=== PATIENT | male | born 1960 | race Two or more races ===

== ENCOUNTER 2016-05-24 09:24 | Day surgery (SDC) | payer MEDICARE, MEDICAID ==
--- NOTE | 2016-05-17 13:54 | HISTORY AND PHYSICAL E ---
History and Physical NAME: CLEM GERARD : 1960 AGE: 56Y ADMITTED: 05/24/2016 ROOM: CHIEF COMPLAINT: Colon screening. History of polyps. HISTORY OF THE PRESENT ILLNESS: I did colonoscopy in the year 2012. Patient did have colonoscopy with Dr. Gatica in 2003. His primary is Dr. Jakub Carvalho. Colon in 2012 showed 2-mm polyp, transverse colon; 2-mm polyp, sigmoid colon. The patient was sent to us by RHODA Escobedo. He does have 3-mm polyp, descending colon; 3-mm polyp, transverse colon; 2-mm polyp, rectum; adenoma polyps, transverse and ascending colon. ALLERGIES: PENICILLIN. PHYSICAL EXAMINATION: VITAL SIGNS: Blood pressure 130/70. Pulse 80. Respirations 18. Temp is 98. HEAD, EYES, EARS, NOSE AND THROAT: Normal. NECK: Supple. LUNGS: Clear. ABDOMEN: Soft. NEUROLOGIC: Negative. CONCLUSIONS: 1. History of polyps. 2. Colon screening. PLAN: Colonoscopy. Admit 05/24. MEDICATIONS: Patient is known to have diabetes. He takes Janumet and simvastatin. DICTATING PHYSICIAN: YVETTE GOFF M.D. [id number] PHY#: [id number] ID: [id number] JOB#: [id number] ACCT: [id number] cc:JAKUB CARVALHO M.D., MAHMOUD M.D. >
[~2016-05-24 09:24] MED LIST: EPINEPHRINE INJ 1 MG/10 ML DISP.SYRIN ONE; FENTANYL CITRATE INJ/PF 100 MCG/2 ML AMPUL ONE; FLUMAZENIL INJ 0.5 MG/5 ML VIAL IV ONE; GLUCAGON,HUMAN RECOMB 1 MG INJ ONE; GLYCOPYRROLATE INJ 0.4 MG/2 ML VIAL ONE; LIDOCAINE 2% JELLY 30 ML TUBE ONE; NALOXONE HCL INJ/PF 0.4 MG/1 ML SDV ONE; ONDANSETRON HCL INJ/PF 4 MG/2 ML SDV ONE; PROMETHAZINE HCL INJ 25 MG/1 ML VIAL ONE
[2016-05-24] MEDS: MIDAZOLAM 2 MG/2 ML INJ ONE ×2 (09:58→10:02)
--- NOTE | 2016-05-24 11:04 | DISCHARGE SUMMARY E ---
Discharge Summary NAME: CLEM GERARD : 1960 AGE: 56Y ADMITTED: 05/24/2016 DISCHARGED: 05/24/2016 PROCEDURE: Colonoscopy. FINAL DIAGNOSES: 1. External hemorrhoids. 2. Redundant colon. HISTORY: This is a 56-year-old male with history of polyps. Today's colonoscopy shows redundant colon, no evidence of polyps. DISCHARGE PLAN: 1. Soft diet, low residue for 2 days. 2. Baseline CBC, CEA and chem profile. 3. Patient to see us in the office in the next few days. Consider follow-up colonoscopy in 3 years. DICTATING PHYSICIAN: YVETTE GOFF M.D. [id number] PHY#: [id number] ID: [id number] JOB#: [id number] ACCT: [id number] cc:YVETTE GOFF M.D., MARY PA-C >
[2016-05-24 11:10] VITALS: BP 125/85
[2016-05-24 11:16] LABS: ABSOLUTE EOSINOPHILS # (AUTO) 0.1 10^3/uL (0.0-0.6); ABSOLUTE LYMPHOCYTES (AUTO) 1.6 10^3/uL (0.5-4.7); ABSOLUTE MONOCYTES (AUTO) 0.5 10^3/uL (0.1-1.4); BASOPHILS % (AUTO) 0.7 % (0-2); EOSINOPHILS % (AUTO) 2.2 % (0-6); HEMATOCRIT 40.9 % (37.9-51.0); HEMOGLOBIN 13.8 g/dL (13.5-17.0); HGB HCT DIFFERENCE 0.5; LYMPHOCYTES % (AUTO) 24.6 % (13-45); MEAN CORPUSCULAR HGB CONC 33.7 g/dL (32.0-36.0); MEAN CORPUSCULAR VOLUME 89 fl (80-97); MONOCYTES % (AUTO) 8.5 % (3-13); RED CELL DISTRIBUTION WIDTH 13.3 % (11.5-14.0); WHITE BLOOD COUNT 6.3 10^3/uL (4.0-10.5)
[2016-05-24 11:34] LABS: ANION GAP 13 (5-19); BLOOD UREA NITROGEN 14 mg/dL (7-20); CALCIUM 9.5 mg/dL (8.4-10.2); CARBON DIOXIDE 27 mmol/L (22-30); CHLORIDE 98 mmol/L (98-107); GLUCOSE 280 mg/dL (75-110); IRON 69.3 ug/dL (49-181); POTASSIUM 4.1 mmol/L (3.6-5.0); SODIUM 137.7 mmol/L (137-145)
[2016-05-24 12:05] LABS: CARCINOEMBRYONIC ANTIGEN 4.8 ng/mL (<3.0)
--- NOTE | 2016-05-24 12:30 | OPERATIVE REPORT E ---
Operative Report NAME: CLEM GERARD : 1960 AGE: 56Y DATE OF SURGERY: 05/24/2016 ROOM: PREOPERATIVE DIAGNOSIS: History of polyps. POSTOPERATIVE DIAGNOSIS: 1. External hemorrhoids. 2. Redundant colon. 3. No polyps. 4. The patient has foreign bodies, most likely fruits/grapes, in his sigmoid and descending colon which were lavaged and flushing it moved around. I did not see any polyps. PROCEDURE: Colonoscopy SURGEON: YVETTE GOFF M.D. TISSUE REMOVED OR ALTERED: None. DESCRIPTION OF PROCEDURE: Rectal exam external hemorrhoids. Rectosigmoid normal. Descending colon redundant, normal. Moderate amount of grapes retained in the left colon. Transverse colon normal. Ascending colon normal. Cecum normal. The patient has very redundant colon. Scope withdrawn cecum, ascending, transverse, descending, sigmoid all the way to the rectum. CONCLUSIONS: 1. Redundant colon. 2. External hemorrhoids. The patient tolerated the procedure well. He was discharged to his room in stable condition. DICTATING PHYSICIAN: YVETTE GOFF M.D. [id number] PHY#: [id number] ID: [id number] JOB#: [id number] ACCT: [id number] cc:YVETTE GOFF M.D., MARY PA-C >
== END 2016-05-24 11:18 | disposition home or self-care (01) ==
LOC: END 09:24
PROVIDERS: ATTEND Specialist
PROC: 0DJD8ZZ Inspection of Lower Intestinal Tract, Via Natural or Artificial Opening Endoscopic (ICD-10-PCS; principal; 2016-05-24 10:00)
DX: K63.5 Polyp of colon (principal); Q43.8 Other specified congenital malformations of intestine; K64.4 Residual hemorrhoidal skin tags; Z86.010 Personal history of colon polyps; R97.0 Elevated carcinoembryonic antigen [CEA]; Z88.0 Allergy status to penicillin
CPT/HCPCS: 45378; 36415; 82962; 82607; 82378; 83540; 85025; 80048; J2250; J3010; J1610; J0171; J2310; J2405; J2550; J3490

== ENCOUNTER → 2016-07-26 | Outpatient (CLI) | payer MEDICARE, MEDICAID ==
[2016-07-26 16:04] LABS: APPEARANCE,URINE CLEAR; BILIRUBIN,URINE NEGATIVE (NEGATIVE); GLUCOSE, URINE >=500 mg/dL (NEGATIVE); KETONES,URINE TRACE mg/dL (NEGATIVE); LEUKOCYTE ESTERASE,URINE NEGATIVE (NEGATIVE); NITRITE,URINE NEGATIVE (NEGATIVE); PROTEIN,URINE NEGATIVE (NEGATIVE); URINE SPECIFIC GRAVITY 1.024; UROBILINOGEN,URINE NEGATIVE mg/dL (<2.0)
[2016-07-26 16:51] LABS: ABSOLUTE BASOPHILS # (AUTO) 0.1 10^3/uL (0.0-0.2); ABSOLUTE EOSINOPHILS # (AUTO) 0.1 10^3/uL (0.0-0.6); ABSOLUTE MONOCYTES (AUTO) 0.8 10^3/uL (0.1-1.4); ABSOLUTE NEUT (AUTO) 5.3 10^3/uL (1.7-8.2); EOSINOPHILS % (AUTO) 1.6 % (0-6); HEMOGLOBIN 14.3 g/dL (13.5-17.0); HGB HCT DIFFERENCE -0.1; LYMPHOCYTES % (AUTO) 23.9 % (13-45); MEAN CORPUSCULAR HEMOGLOBIN 29.5 pg (27.0-33.4); MEAN CORPUSCULAR HGB CONC 33.2 g/dL (32.0-36.0); MEAN CORPUSCULAR VOLUME 89 fl (80-97); MONOCYTES % (AUTO) 9.4 % (3-13); RED BLOOD COUNT 4.84 10^6/uL (4.35-5.55); RED CELL DISTRIBUTION WIDTH 13.7 % (11.5-14.0); SEGMENTED NEUTROPHILS % (AUTO) 64.1 % (42-78); WHITE BLOOD COUNT 8.3 10^3/uL (4.0-10.5)
== END ==
LOC: OD 15:35
PROVIDERS: ATTEND Specialist
DX: R10.9 Unspecified abdominal pain (principal)
CPT/HCPCS: 36415; 74022; 81001; 85025

== ENCOUNTER 2016-08-05 08:31 | Emergency (ER) | payer MEDICARE, MEDICAID ==
[2016-08-05] MEDS ORDERED: KETOROLAC TROMETHAMINE INJ/PF 30 MG/1 ML SDV IV ONE (09:26)
[2016-08-05] MEDS ORDERED: NORMAL SALINE 1000 ML 1,000 ML IV ONE (09:26)
[2016-08-05] MEDS ORDERED: ONDANSETRON HCL INJ/PF 4 MG/2 ML SDV IV ONE (09:26)
[2016-08-05 09:32] LABS: APPEARANCE,URINE CLEAR; BILIRUBIN,URINE NEGATIVE (NEGATIVE); GLUCOSE, URINE 50 mg/dL (NEGATIVE); KETONES,URINE TRACE mg/dL (NEGATIVE); LEUKOCYTE ESTERASE,URINE NEGATIVE (NEGATIVE); NITRITE,URINE NEGATIVE (NEGATIVE); PROTEIN,URINE NEGATIVE (NEGATIVE); URINE SPECIFIC GRAVITY 1.019; UROBILINOGEN,URINE NEGATIVE mg/dL (<2.0)
[2016-08-05 09:49] LABS: ABSOLUTE BASOPHILS # (AUTO) 0.1 10^3/uL (0.0-0.2); ABSOLUTE EOSINOPHILS # (AUTO) 0.3 10^3/uL (0.0-0.6); ABSOLUTE LYMPHOCYTES (AUTO) 1.4 10^3/uL (0.5-4.7); ABSOLUTE MONOCYTES (AUTO) 0.6 10^3/uL (0.1-1.4); ABSOLUTE NEUT (AUTO) 3.8 10^3/uL (1.7-8.2); EOSINOPHILS % (AUTO) 5.1 % (0-6); HEMATOCRIT 40.8 % (37.9-51.0); HEMOGLOBIN 13.6 g/dL (13.5-17.0); LYMPHOCYTES % (AUTO) 23.3 % (13-45); MEAN CORPUSCULAR HEMOGLOBIN 30.2 pg (27.0-33.4); MEAN CORPUSCULAR HGB CONC 33.3 g/dL (32.0-36.0); MEAN CORPUSCULAR VOLUME 91 fl (80-97); MONOCYTES % (AUTO) 9.4 % (3-13); RED BLOOD COUNT 4.49 10^6/uL (4.35-5.55); RED CELL DISTRIBUTION WIDTH 13.8 % (11.5-14.0); SEGMENTED NEUTROPHILS % (AUTO) 61.2 % (42-78); WHITE BLOOD COUNT 6.1 10^3/uL (4.0-10.5)
--- NOTE | 2016-08-05 09:55 | ER Document Report ---
ED General - General Chief Complaint: Flank Pain Stated Complaint: FLANK PLAIN Time Seen by Provider: 08/05/16 08:56 TRAVEL OUTSIDE OF THE [place] IN LAST 30 DAYS: No - HPI Patient complains to provider of: flank pain Notes: Patient with generalized right flank pain ongoing for the last 10-14 days according to the patient. No nausea no vomiting fevers or chills no dysuria. Patient states he was seen by GI specialist thought that possibly may have had a kidney stone patient was prescribed Percocet patient states this is not relieving his pain now. Patient denies a history kidney stones patient does state he has a history of diabetes hypertension patient is unaware of his blood pressure medications - Related Data Allergies/Adverse Reactions: Penicillins Allergy (Intermediate, Verified 08/05/16 08:41) GENERALIZED PAIN Past Medical History - Social History Smoking Status: Current Every Day Smoker Chew tobacco use (# tins/day): No Frequency of alcohol use: None Drug Abuse: None Family History: Reviewed & Not Pertinent Patient has suicidal ideation: No Patient has homicidal ideation: No - Past Medical History Cardiac Medical History: Reports: Hx Heart Attack - Possible, Hx Hypertension Denies: Hx Atrial Fibrillation, Hx Congestive Heart Failure, Hx Coronary Artery Disease, Hx Hypercholesterolemia, Hx Peripheral Vascular Disease, Hx Pulmonary Embolism, Hx Heart Murmur Pulmonary Medical History: Denies: Hx Asthma, Hx Bronchitis, Hx COPD, Hx Pneumonia, Hx Respiratory Failure, Hx Sleep Apnea, Hx Tuberculosis Neurological Medical History: Reports: Hx Cerebrovascular Accident. Denies: Hx Seizures Endocrine Medical History: Reports: Hx Diabetes Mellitus Type 2. Denies: Hx Graves' Disease, Hx Hyperthyroidism, Hx Hypothyroidism Renal/ Medical History: Reports: Hx Kidney Stones. Denies: Hx Benign Prostatic Hyperplasia, Hx End Stage Renal Disease, Hx Peritoneal Dialysis Malignancy Medical History: Denies Hx Lung Cancer GI Medical History: Reports: Hx Gastroesophageal Reflux Disease. Denies: Hx Crohn's Disease, Hx Hiatal Hernia, Hx Irritable Bowel, Hx Liver Failure, Hx Ulcer Musculoskeltal Medical History: Reports Hx Arthritis - SHOULDERS, Denies Hx Fibromyalgia, Denies Hx Multiple Sclerosis, Denies Hx Muscular Dystrophy Psychiatric Medical History: Reports: Hx Bipolar Disorder, Hx Depression Denies: Hx Dementia, Hx Post Traumatic Stress Disorder, Hx Schizophrenia Traumatic Medical History: Denies: Hx Fractures Past Surgical History: Reports: Hx Cardiac Catheterization. Denies: Hx Appendectomy, Hx Bowel Surgery, Hx Cholecystectomy, Hx Colostomy, Hx Coronary Artery Bypass Graft, Hx Gastric Bypass Surgery, Hx Herniorrhaphy, Hx Pacemaker, Hx Tonsillectomy - Immunizations Hx Diphtheria, Pertussis, Tetanus Vaccination: Yes Review of Systems - Review of Systems Constitutional: No symptoms reported EENT: No symptoms reported Cardiovascular: No symptoms reported Respiratory: No symptoms reported Gastrointestinal: No symptoms reported Genitourinary: Flank pain Male Genitourinary: No symptoms reported Musculoskeletal: No symptoms reported Skin: No symptoms reported Hematologic/Lymphatic: No symptoms reported Neurological/Psychological: No symptoms reported -: Yes All other systems reviewed and negative Physical Exam - Vital signs Vitals: Temp Pulse Resp BP Pulse Ox 98.9 F 94 18 128/73 H 98 08/05/16 08:42 08/05/16 08:42 08/05/16 08:42 08/05/16 08:42 08/05/16 08:42 Interpretation: Normal - General General appearance: Appears well, Alert - HEENT Head: Normocephalic, Atraumatic Eyes: Normal Pupils: PERRL - Respiratory Respiratory status: No respiratory distress Chest status: Nontender Breath sounds: Normal Chest palpation: Normal - Cardiovascular Rhythm: Regular Heart sounds: Normal auscultation Murmur: No - Abdominal Inspection: Normal Distension: No distension Bowel sounds: Normal Tenderness: Nontender Organomegaly: No organomegaly - Back Back: Normal, Nontender. No: CVA tenderness - Extremities General upper extremity: Normal inspection, Nontender, Normal color, Normal ROM , Normal temperature General lower extremity: Normal inspection, Nontender, Normal color, Normal ROM , Normal temperature, Normal weight bearing. No: Cathy's sign - Neurological Neuro grossly intact: Yes Cognition: Normal Orientation: AAOx4 Sheryl Coma Scale Eye Opening: Spontaneous [place] Coma Scale Verbal: Oriented [place] Coma Scale Motor: Obeys Commands [place] Coma Scale Total: 15 Speech: Normal Motor strength normal: LUE, RUE, LLE, RLE Sensory: Normal - Psychological Associated symptoms: Normal affect, Normal mood - Skin Skin Temperature: Warm Skin Moisture: Dry Skin Color: Normal Course - Re-evaluation Re-evalutation: 08/05/16 10:08 Patient coming in for evaluation right flank pain. Patient will have a CT scan basic lab work performed. At this time vital signs look stable no critical etiology. 08/05/16 14:25 No clear etiology to explain the patient's pain. Patient will follow-up primary care physician and will be discharged home - Vital Signs Vital signs: Temp Pulse Resp BP Pulse Ox 97.6 F 78 16 131/85 H 98 08/05/16 11:20 08/05/16 11:20 08/05/16 11:20 08/05/16 11:20 08/05/16 11:20 - Laboratory Result Diagrams: 08/05/16 09:08 08/05/16 09:08 Laboratory results interpreted by me: 08/05/16 08/05/16 09:08 09:18 Glucose 192 H Urine Glucose (UA) 50 H Urine Ketones TRACE H Discharge - Discharge Clinical Impression: Right flank pain, Bilateral nephrolithiasis Condition: Good Disposition: HOME, SELF-CARE Instructions: Flank Pain ([facility]) Additional Instructions: At this time I have no clear sign of why you're having flank pain. Please follow-up with your primary care doctor. Return to the ER if symptoms worsen. He may take Tylenol and Motrin [id number] for your pain control. The pain medication prescribed is her very severe pain. Prescriptions: Oxycodone HCl 5 mg PO Q6 #14 capsule Referrals: ERNESTO HOUSER PA-C [Primary Care Provider] - Follow up as needed
[2016-08-05 10:07] LABS: ALANINE AMINOTRANSFERASE 41 U/L (21-72); ALBUMIN 4.2 g/dL (3.5-5.0); ALKALINE PHOSPHATASE 50 U/L (38-126); ANION GAP 10 (5-19); ASPARTATE AMINO TRANSFERASE 29 U/L (17-59); BILIRUBIN,DIRECT 0.3 mg/dL (0.0-0.4); BILIRUBIN,TOTAL 0.3 mg/dL (0.2-1.3); BLOOD UREA NITROGEN 17 mg/dL (7-20); CARBON DIOXIDE 25 mmol/L (22-30); CHLORIDE 104 mmol/L (98-107); CREATININE RESULT 0.89 mg/dL (0.52-1.25); GLUCOSE 192 mg/dL (75-110); LIPASE 124.7 U/L (23-300); POTASSIUM 4.6 mmol/L (3.6-5.0); SODIUM 139.3 mmol/L (137-145); TOTAL PROTEIN 6.9 g/dL (6.3-8.2)
[2016-08-05 11:27] VITALS: BP 131/85
== END 2016-08-05 11:27 | disposition home or self-care (01) ==
LOC: ER 08:31
DX: N20.0 Calculus of kidney (principal); R10.9 Unspecified abdominal pain; F17.200 Nicotine dependence, unspecified, uncomplicated
CPT/HCPCS: 99284; 96361; 96374; 96375; 36415; 83690; 85025; 80053; 81001; 76380; J1885; J2405; J7030

== ENCOUNTER 2016-10-14 20:11 | Emergency (ER) | payer MEDICARE, MEDICAID ==
[2016-10-14] MEDS ORDERED: ONDANSETRON 4 MG TAB.RAPDIS PO ONE (20:50)
--- NOTE | 2016-10-14 20:53 | ER Document Report ---
ED Medical Screen (RME) - General Chief Complaint: Abdominal Pain Stated Complaint: ABDOMINAL PAIN Time Seen by Provider: 10/14/16 20:48 Mode of Arrival: Ambulatory Information source: Patient TRAVEL OUTSIDE OF THE [place] IN LAST 30 DAYS: No - HPI Onset: This afternoon - 3 HRS PRIOR TO E.D. ARRIVAL Onset/Duration: Sudden Quality of pain: Cramping, Dull Severity: Moderate Associated Symptoms: Nausea. 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 Allergies/Adverse Reactions: Penicillins Allergy (Intermediate, Verified 10/14/16 20:21) GENERALIZED PAIN Past Medical History - General Information source: Patient - Social History Chew tobacco use (# tins/day): No Frequency of alcohol use: None Drug Abuse: None - Past Medical History Cardiac Medical History: Reports: Hx Heart Attack - Possible, Hx Hypertension Denies: Hx Atrial Fibrillation, Hx Congestive Heart Failure, Hx Coronary Artery Disease, Hx Hypercholesterolemia, Hx Peripheral Vascular Disease, Hx Pulmonary Embolism, Hx Heart Murmur Pulmonary Medical History: Denies: Hx Asthma, Hx Bronchitis, Hx COPD, Hx Pneumonia, Hx Respiratory Failure, Hx Sleep Apnea, Hx Tuberculosis Neurological Medical History: Reports: Hx Cerebrovascular Accident. Denies: Hx Seizures Endocrine Medical History: Reports: Hx Diabetes Mellitus Type 2. Denies: Hx Graves' Disease, Hx Hyperthyroidism, Hx Hypothyroidism Renal/ Medical History: Reports: Hx Kidney Stones. Denies: Hx Benign Prostatic Hyperplasia, Hx End Stage Renal Disease, Hx Peritoneal Dialysis Malignancy Medical History: Denies Hx Lung Cancer GI Medical History: Reports: Hx Gastroesophageal Reflux Disease. Denies: Hx Crohn's Disease, Hx Hiatal Hernia, Hx Irritable Bowel, Hx Liver Failure, Hx Ulcer Musculoskeltal Medical History: Reports Hx Arthritis - SHOULDERS, Denies Hx Fibromyalgia, Denies Hx Multiple Sclerosis, Denies Hx Muscular Dystrophy Psychiatric Medical History: Reports: Hx Bipolar Disorder, Hx Depression Denies: Hx Dementia, Hx Post Traumatic Stress Disorder, Hx Schizophrenia Traumatic Medical History: Denies: Hx Fractures Past Surgical History: Reports: Hx Cardiac Catheterization. Denies: Hx Appendectomy, Hx Bowel Surgery, Hx Cholecystectomy, Hx Colostomy, Hx Coronary Artery Bypass Graft, Hx Gastric Bypass Surgery, Hx Herniorrhaphy, Hx Pacemaker, Hx Tonsillectomy - Immunizations Hx Diphtheria, Pertussis, Tetanus Vaccination: Yes Review of Systems - Review of Systems Constitutional: No symptoms reported EENT: No symptoms reported Cardiovascular: See HPI Respiratory: No symptoms reported Gastrointestinal: See HPI Genitourinary: No symptoms reported Musculoskeletal: No symptoms reported Skin: No symptoms reported Neurological/Psychological: No symptoms reported Physical Exam - Vital signs Interpretation: Hypertensive. No: Tachycardic, Tachypneic, Febrile - General General appearance: Appears well, Alert In distress: None - HEENT Head: Normocephalic Eyes: Normal Conjunctiva: Normal Ears: Normal Nasal: Normal Mouth/Lips: Normal Mucous membranes: Normal - Respiratory Respiratory status: No respiratory distress - Cardiovascular Rhythm: Regular - Abdominal Inspection: Normal, Obese Tenderness: Tender - MILDLY, RUQ - Back Back: Normal - Extremities General upper extremity: Normal inspection General lower extremity: Normal inspection. No: Tender, Edema - Neurological Neuro grossly intact: Yes Cognition: Normal Orientation: AAOx4 - Psychological Associated symptoms: Normal affect, Normal mood - Skin Skin Temperature: Warm Skin Moisture: Dry Skin Color: Normal Skin Turgor: Elastic
[2016-10-14 22:05] LABS: ABSOLUTE BASOPHILS # (AUTO) 0.1 10^3/uL (0.0-0.2); ABSOLUTE EOSINOPHILS # (AUTO) 0.3 10^3/uL (0.0-0.6); ABSOLUTE LYMPHOCYTES (AUTO) 1.9 10^3/uL (0.5-4.7); ABSOLUTE MONOCYTES (AUTO) 0.8 10^3/uL (0.1-1.4); ABSOLUTE NEUT (AUTO) 6.3 10^3/uL (1.7-8.2); BASOPHILS % (AUTO) 0.7 % (0-2); EOSINOPHILS % (AUTO) 3.4 % (0-6); HEMATOCRIT 41.8 % (37.9-51.0); HGB HCT DIFFERENCE 0.2; LYMPHOCYTES % (AUTO) 20.1 % (13-45); MEAN CORPUSCULAR HEMOGLOBIN 30.5 pg (27.0-33.4); MEAN CORPUSCULAR HGB CONC 33.4 g/dL (32.0-36.0); MEAN CORPUSCULAR VOLUME 91 fl (80-97); MONOCYTES % (AUTO) 8.3 % (3-13); RED BLOOD COUNT 4.57 10^6/uL (4.35-5.55); RED CELL DISTRIBUTION WIDTH 13.5 % (11.5-14.0); SEGMENTED NEUTROPHILS % (AUTO) 67.5 % (42-78); WHITE BLOOD COUNT 9.3 10^3/uL (4.0-10.5)
[2016-10-14 22:25] LABS: APPEARANCE,URINE CLEAR; BILIRUBIN,URINE NEGATIVE (NEGATIVE); GLUCOSE, URINE NEGATIVE (NEGATIVE); KETONES,URINE NEGATIVE (NEGATIVE); LEUKOCYTE ESTERASE,URINE NEGATIVE (NEGATIVE); NITRITE,URINE NEGATIVE (NEGATIVE); PROTEIN,URINE NEGATIVE (NEGATIVE); URINE SPECIFIC GRAVITY 1.015; UROBILINOGEN,URINE NEGATIVE mg/dL (<2.0)
[2016-10-14 22:29] LABS: ALANINE AMINOTRANSFERASE 38 U/L (21-72); ALBUMIN 4.8 g/dL (3.5-5.0); ALKALINE PHOSPHATASE 57 U/L (38-126); ANION GAP 12 (5-19); ASPARTATE AMINO TRANSFERASE 25 U/L (17-59); BILIRUBIN,DIRECT 0.3 mg/dL (0.0-0.4); BILIRUBIN,TOTAL 0.4 mg/dL (0.2-1.3); BLOOD UREA NITROGEN 19 mg/dL (7-20); CALCIUM 10.5 mg/dL (8.4-10.2); CARBON DIOXIDE 27 mmol/L (22-30); CHLORIDE 102 mmol/L (98-107); CREATININE RESULT 0.84 mg/dL (0.52-1.25); GLUCOSE 140 mg/dL (75-110); LIPASE 212.3 U/L (23-300); POTASSIUM 4.5 mmol/L (3.6-5.0); SODIUM 141.4 mmol/L (137-145); TOTAL PROTEIN 7.9 g/dL (6.3-8.2)
--- NOTE | 2016-10-14 23:27 | RADIOLOGY REPORT (SQ) ---
EXAM DESCRIPTION: U/S ABDOMEN COMPLETE W/O DOP COMPLETED DATE/TIME: 10/14/2016 11:13 pm REASON FOR STUDY: R. UPPER QUADRANT PAIN COMPARISON: None. TECHNIQUE: Dynamic and static grayscale images acquired of the abdomen and recorded on PACS. Additio nal selected color Doppler and spectral images recorded. LIMITATIONS: None. FINDINGS: PANCREAS: Not adequately visualized LIVER: Diffusely increased echogenicity, consistent with hepatic steatosis. LIVER VASCULATURE: Normal directional flow of the main portal vein and hepatic veins. GALLBLADDER: No stones. Normal wall thickness. No pericholecystic fluid. ULTRASOUND-DETECTED PALOMO'S SIGN: Positive. INTRAHEPATIC DUCTS AND COMMON DUCT: CBD and intrahepatic ducts normal caliber. No filling defects. INFERIOR VENA CAVA: Normal flow. AORTA: The proximal aorta is normal in caliber; the mid and distal aorta are not adequately visualize d. RIGHT KIDNEY: Normal size. Normal echogenicity. No solid or suspicious masses. No hydronephros is. No calcifications. LEFT KIDNEY: Normal size. Normal echogenicity. No solid or suspicious masses. Incidental note i s made of a 5 cm renal cyst. No hydronephrosis. No calcifications. SPLEEN: Normal size. No solid masses. PERITONEAL AND PLEURAL SPACES: No ascites or effusions. OTHER: No other significant finding. IMPRESSION: Reported sonographic Palomo's sign in the absence of cholelithiasis, mural thickening, o r pericholecystic fluid. No sonographic findings to correlate to the patient's reported right upper quadrant pain. TECHNICAL DOCUMENTATION: JOB ID: [id number] [employer]- All Rights Reserved
[2016-10-15] MEDS ORDERED: NORMAL SALINE 1000 ML 1,000 ML IV ONE (00:04)
[2016-10-15] MEDS ORDERED: MORPHINE SULFATE 10 MG/ML INJ IV PRN (00:04)
--- NOTE | 2016-10-15 02:15 | RADIOLOGY REPORT (SQ) ---
EXAM DESCRIPTION: CT ABD/PELVIS WITH IV ONLY COMPLETED DATE/TIME: 10/15/2016 2:02 am REASON FOR STUDY: ruq pain, persistent, gaurding COMPARISON: None. TECHNIQUE: CT scan of the abdomen and pelvis performed using helical scanning technique with dynamic intravenous contrast injection. No oral contrast. Images reviewed with lung, soft tissue, and bone windows. Reconstructed coronal and sagittal MPR images reviewed. Delayed images for evaluation of the urinary system also acquired. All images stored on PACS. All CT scanners at this facility use dose modulation, iterative reconstruction, and/or weight based d osing when appropriate to reduce radiation dose to as low as reasonably achievable (ALARA). [facility]: Dose Right [facility]: CareDose [facility]: Dose Right [facility]: Teradose 4D [facility]: LocalGuiding CONTRAST TYPE AND DOSE: contrast/concentration: Isovue 370.00 mg/ml; Total Contrast Delivered: 100.0 ml; Total Saline Delivered: 72.0 ml RENAL FUNCTION: GFR > 60. RADIATION DOSE: Up-to-date CT equipment and radiation dose reduction techniques were employed. CTDIv ol: 13.4 - 18.5 mGy. DLP: 1764 mGy-cm.. LIMITATIONS: None. FINDINGS: LOWER CHEST: No significant findings. No nodules or infiltrates. LIVER: Normal size. No masses. No dilated ducts. SPLEEN: Normal size. No focal lesions. PANCREAS: No masses. No significant calcifications. No adjacent inflammation or peripancreatic fluid collections. Pancreatic duct not dilated. GALLBLADDER: No identified stones by CT criteria. No inflammatory changes to suggest cholecystitis. ADRENAL GLANDS: No significant masses or asymmetry. RIGHT KIDNEY AND URETER: No solid masses. No significant calcifications. No hydronephrosis or hyd roureter. LEFT KIDNEY AND URETER: Large cysts. No significant calcifications. No hydronephrosis or hydroure ter. AORTA AND VESSELS: No aneurysm. No dissection. Renal arteries, SMA, celiac without stenosis. RETROPERITONEUM: No retroperitoneal adenopathy, hemorrhage or masses. BOWEL AND PERITONEAL CAVITY: No masses or inflammatory changes. No free fluid or peritoneal masses. APPENDIX: Normal. PELVIS: No mass. No free fluid. Normal bladder. ABDOMINAL WALL: No masses. No hernias. BONES: No significant or acute findings. OTHER: No other significant finding. IMPRESSION: NO SIGNIFICANT OR ACUTE FINDING IN THE ABDOMEN OR PELVIS ON CT SCAN WITH IV CONTRAST. TECHNICAL DOCUMENTATION: JOB ID: [id number] Quality ID # [id number]: Final reports with documentation of one or more dose reduction techniques (e.g., Au tomated exposure control, adjustment of the mA and/or kV according to patient size, use of iterative reconstruction technique) 2010 [employer]- All Rights Reserved
[2016-10-15] MEDS ORDERED: MAG HYDROX/AL HYDROX/SIMETH SUSP 30 ML UDCUP PO ONE (02:31)
[2016-10-15] MEDS ORDERED: METOCLOPRAMIDE HCL ORAL SOLN 10 MG/10 ML UDCUP PO ONE (02:31)
[2016-10-15] MEDS ORDERED: LIDOCAINE 2% VISCOUS SOLN 20 ML UDCUP PO ONE (02:31)
--- NOTE | 2016-10-15 02:35 | ER Document Report ---
ED General - General Chief Complaint: Abdominal Pain Stated Complaint: ABDOMINAL PAIN Time Seen by Provider: 10/14/16 20:48 Mode of Arrival: Ambulatory Notes: Patient is a 56-year-old male with a history of tobacco abuse, hypertension, who presents with 6 hours of right upper quadrant abdominal pain. Does describe as a severe, constant, stabbing pain to the affected area. Nothing improves or worsens the pain. He denies any history of similar symptoms in the past. He has not seen a primary care doctor regarding today's concerns. There is associated nausea without vomiting. He has not had a fever. He denies any chest pain or shortness of breath. TRAVEL OUTSIDE OF THE [place] IN LAST 30 DAYS: No - Related Data Allergies/Adverse Reactions: Penicillins Allergy (Intermediate, Verified 10/14/16 20:21) GENERALIZED PAIN Past Medical History - General Information source: Patient - Social History Smoking Status: Current Every Day Smoker Chew tobacco use (# tins/day): No Frequency of alcohol use: None Drug Abuse: None Lives with: Spouse/Significant other Family History: Reviewed & Not Pertinent - Past Medical History Cardiac Medical History: Reports: Hx Heart Attack - Possible, Hx Hypertension Denies: Hx Atrial Fibrillation, Hx Congestive Heart Failure, Hx Coronary Artery Disease, Hx Hypercholesterolemia, Hx Peripheral Vascular Disease, Hx Pulmonary Embolism, Hx Heart Murmur Pulmonary Medical History: Denies: Hx Asthma, Hx Bronchitis, Hx COPD, Hx Pneumonia, Hx Respiratory Failure, Hx Sleep Apnea, Hx Tuberculosis Neurological Medical History: Reports: Hx Cerebrovascular Accident. Denies: Hx Seizures Endocrine Medical History: Reports: Hx Diabetes Mellitus Type 2. Denies: Hx Graves' Disease, Hx Hyperthyroidism, Hx Hypothyroidism Renal/ Medical History: Reports: Hx Kidney Stones. Denies: Hx Benign Prostatic Hyperplasia, Hx End Stage Renal Disease, Hx Peritoneal Dialysis Malignancy Medical History: Denies Hx Lung Cancer GI Medical History: Reports: Hx Gastroesophageal Reflux Disease. Denies: Hx Crohn's Disease, Hx Hiatal Hernia, Hx Irritable Bowel, Hx Liver Failure, Hx Ulcer Musculoskeltal Medical History: Reports Hx Arthritis - SHOULDERS, Denies Hx Fibromyalgia, Denies Hx Multiple Sclerosis, Denies Hx Muscular Dystrophy Psychiatric Medical History: Reports: Hx Bipolar Disorder, Hx Depression Denies: Hx Dementia, Hx Post Traumatic Stress Disorder, Hx Schizophrenia Traumatic Medical History: Denies: Hx Fractures Past Surgical History: Reports: Hx Cardiac Catheterization. Denies: Hx Appendectomy, Hx Bowel Surgery, Hx Cholecystectomy, Hx Colostomy, Hx Coronary Artery Bypass Graft, Hx Gastric Bypass Surgery, Hx Herniorrhaphy, Hx Pacemaker, Hx Tonsillectomy - Immunizations Hx Diphtheria, Pertussis, Tetanus Vaccination: Yes Review of Systems - Review of Systems Notes: Constitutional: Negative for fever. HENT: Negative for sore throat. Eyes: Negative for visual changes. Cardiovascular: Negative for chest pain. Respiratory: Negative for shortness of breath. Gastrointestinal: Positive for abdominal pain and nausea Genitourinary: Negative for dysuria. Musculoskeletal: Negative for back pain. Skin: Negative for rash. Neurological: Negative for headaches, weakness or numbness. 10 point ROS negative except as marked above and in HPI. Physical Exam - Vital signs Vitals: Temp Pulse Resp BP Pulse Ox 97.9 F 80 20 142/79 H 98 10/15/16 03:25 10/15/16 03:25 10/15/16 03:25 10/15/16 03:25 10/15/16 03:25 Interpretation: Hypertensive Notes: PHYSICAL EXAMINATION: GENERAL: Appears mildly uncomfortable but in no acute distress.. HEAD: Atraumatic, normocephalic. EYES: Pupils equal round and reactive to light, extraocular movements intact, sclera anicteric, conjunctiva are normal. ENT: nares patent, oropharynx clear without exudates. Moist mucous membranes. NECK: Normal range of motion, supple without lymphadenopathy LUNGS: Breath sounds clear to auscultation bilaterally and equal. No wheezes rales or rhonchi. HEART: Regular rate and rhythm without murmurs ABDOMEN: Soft, there is focal tenderness to the right upper quadrant and epigastrium without rebound or guarding. Abdominal exam otherwise without any focal tenderness rebound or guarding. EXTREMITIES: Normal range of motion, no pitting or edema. No cyanosis. NEUROLOGICAL: No focal neurological deficits. Moves all extremities spontaneously and on command. PSYCH: Normal mood, normal affect. SKIN: Warm, Dry, normal turgor, no rashes or lesions noted. Course - Re-evaluation Re-evalutation: 10/15/16 02:31 Patient presents with right upper quadrant abdominal pain for the past 6 hours, focal tenderness to the right upper quadrant and epigastric pain. Differential diagnosis did lead toward likely biliary pathology but a right upper quadrant ultrasound was completely normal without any evidence of acute cholecystitis. Repeat abdominal exams remained with tenderness to the right upper quadrant and epigastrium despite normal vitals, reassuring labs. At this point given patient 's degree of pain did obtain a CT of the abdomen pelvis with IV contrast to evaluate for possible idiopathic liver injury, bowel perforation, intra- abdominal abscess. CT was noted to be completely normal. Patient's pain was able to be controlled here in the emergency department. At this time at this point the patient that the exact etiology of his pain is uncertain at this time he needs to return to the emergency department immediately should have any new or worsening symptoms including worsening of his abdominal pain. At this time will discharge with return precautions and follow-up recommendations. Verbal discharge instructions given a the bedside and opportunity for questions given. Medication warnings reviewed. Patient is in agreement with this plan and has verbalized understanding of return precautions and the need for primary care follow-up in the next 24-72 hours. - Vital Signs Vital signs: Temp Pulse Resp BP Pulse Ox 97.9 F 80 20 142/79 H 98 10/15/16 03:25 10/15/16 03:25 10/15/16 03:25 10/15/16 03:25 10/15/16 03:25 - Laboratory Result Diagrams: 10/14/16 21:40 10/14/16 21:40 Laboratory results interpreted by me: 10/14/16 21:40 Glucose 140 H Calcium 10.5 H - Diagnostic Test Radiology reviewed: Reports reviewed - EKG Interpretation by Me Additional EKG results interpreted by me: 10/15/16 04:03 Sinus rhythm. Rate 66. No ST elevations or depressions. QTC is 424. Discharge - Discharge Clinical Impression: Abdominal pain Qualifiers: Abdominal location: right upper quadrant Qualified Code(s): R10.11 - Right upper quadrant pain Condition: Good Disposition: HOME, SELF-CARE Additional Instructions: You have been seen in the Emergency Department (ED) for abdominal pain. Your evaluation did not identify a clear cause of your symptoms but was generally reassuring. Please follow up with your doctor as soon as possible regarding today's emergent visit and the symptoms that are bothering you. Return to the ED if your abdominal pain worsens or fails to improve, you develop bloody vomiting, bloody diarrhea, you are unable to tolerate fluids due to vomiting, fever greater than 101, or other symptoms that concern you.
[2016-10-15 03:27] VITALS: BP 142/79
--- NOTE | 2016-10-15 13:47 | EKG REPORT ---
SEVERITY:- OTHERWISE NORMAL ECG - SINUS ARRHYTHMIA, RATE 50-77 BORDERLINE LEFT AXIS DEVIATION : Confirmed by: Blanquita Ling MD 15-Oct-2016 13:46:20
== END 2016-10-15 03:25 | disposition home or self-care (01) ==
LOC: ER 20:11
DX: R10.11 Right upper quadrant pain (principal); R11.0 Nausea; R10.811 Right upper quadrant abdominal tenderness; R10.816 Epigastric abdominal tenderness; E11.9 Type 2 diabetes mellitus without complications; I10 Essential (primary) hypertension; F17.200 Nicotine dependence, unspecified, uncomplicated; Z88.0 Allergy status to penicillin
CPT/HCPCS: 93005; 99284; 96361; 96374; 36415; 83690; 85025; 80053; 81001; 76700; 74177; 93010; A9270 ×2; J3490; J2270; J7030; S0119

== ENCOUNTER 2018-01-29 12:23 | Emergency (ER) | payer MEDICARE, MEDICAID ==
--- NOTE | 2018-01-29 15:16 | ER Document Report ---
ED Flu Like - General Chief Complaint: Flu Symptoms Stated Complaint: BODY PAIN Time Seen by Provider: 01/29/18 14:08 Mode of Arrival: Ambulatory Information source: Patient Notes: 57-year-old male presents to ED for pain all over sweating and losing weight. He states he might have a virus or it might be his diabetes is not sure. He states he has lost about 6 pounds in the last couple weeks and is lost weight over the last couple months. He states he is seeing Dr. Davis for his diabetes , Lou Pace for his primary care, and a mental health worker for his bipolar. He is concerned because he has pain to his hands and feet. Patient is alert and oriented respirations regular and unlabored speaking in full sentences walks with a even steady gait. TRAVEL OUTSIDE OF THE [place] IN LAST 30 DAYS: No - HPI Onset: Other - Over the last couple months worse today Timing/Duration: Persistent Quality of pain: Achy, Burning, Other - Tingling Severity: Severe Pain Level: 5 CO exposure: No Associated symptoms: Body/muscle aches, Rhinnorhea Similar symptoms previously: Yes Recently seen / treated by doctor: Yes - Related Data Allergies/Adverse Reactions: Penicillins Allergy (Intermediate, Verified 01/29/18 12:41) GENERALIZED PAIN Past Medical History - General Information source: Patient - Social History Smoking Status: Current Every Day Smoker Cigarette use (# per day): Yes - ppd Smoking Education Provided: Yes Lives with: Family Family History: Reviewed & Not Pertinent - Past Medical History Cardiac Medical History: Reports: Hx Heart Attack - Possible, Hx Hypertension Pulmonary Medical History: Reports: None EENT Medical History: Reports: None Neurological Medical History: Reports: Hx Cerebrovascular Accident Endocrine Medical History: Reports: Hx Diabetes Mellitus Type 2 Renal/ Medical History: Reports: Hx Kidney Stones Malignancy Medical History: Reports None GI Medical History: Reports: Hx Gastroesophageal Reflux Disease Musculoskeletal Medical History: Reports Hx Arthritis - SHOULDERS Skin Medical History: Reports None Psychiatric Medical History: Reports: Hx Bipolar Disorder, Hx Depression Traumatic Medical History: Reports: None Infectious Medical History: Reports: None Past Surgical History: Reports: Hx Cardiac Catheterization - Immunizations Immunizations up to date: Yes Hx Diphtheria, Pertussis, Tetanus Vaccination: Yes Review of Systems - Review of Systems Constitutional: Recent illness EENT: Nose congestion, Nose discharge Cardiovascular: No symptoms reported Respiratory: No symptoms reported Gastrointestinal: No symptoms reported Genitourinary: No symptoms reported Male Genitourinary: No symptoms reported Musculoskeletal: Muscle pain, Muscle stiffness Skin: No symptoms reported Hematologic/Lymphatic: No symptoms reported Neurological/Psychological: No symptoms reported -: Yes All other systems reviewed and negative Physical Exam - Vital signs Vitals: Temp Pulse Resp BP Pulse Ox 98.5 F 92 16 148/89 H 97 01/29/18 12:44 01/29/18 12:44 01/29/18 12:44 01/29/18 12:44 01/29/18 12:44 Interpretation: Normal - General General appearance: Appears well, Alert - HEENT Head: Normocephalic, Atraumatic Eyes: Normal Pupils: PERRL Ears: Normal External canal: Normal Tympanic membrane: Normal Sinus: Normal Nasal: Purulent discharge, Swelling Mouth/Lips: Other - White film to the tongue that is easily removed with a tongue blade Mucous membranes: Normal Pharynx: Post nasal drainage Neck: Anterior cervical chain - Respiratory Respiratory status: No respiratory distress Chest status: Nontender Breath sounds: Normal Chest palpation: Normal - Cardiovascular Rhythm: Regular Heart sounds: Normal auscultation Murmur: No - Abdominal Inspection: Normal Distension: No distension Bowel sounds: Normal Tenderness: Nontender Organomegaly: No organomegaly - Back Back: Normal, Nontender - Extremities General upper extremity: Normal inspection, Nontender, Normal color, Normal ROM , Normal temperature General lower extremity: Normal inspection, Nontender, Normal color, Normal ROM , Normal temperature, Normal weight bearing. No: Cathy's sign - Neurological Neuro grossly intact: Yes Cognition: Normal Orientation: AAOx4 Sheryl Coma Scale Eye Opening: Spontaneous Sheryl Coma Scale Verbal: Oriented Sheryl Coma Scale Motor: Obeys Commands [place] Coma Scale Total: 15 Speech: Normal Motor strength normal: LUE, RUE, LLE, RLE Sensory: Normal - Psychological Associated symptoms: Normal affect, Normal mood - Skin Skin Temperature: Warm Skin Moisture: Dry Skin Color: Normal Course - Re-evaluation Re-evalutation: 01/30/18 02:09 After performing a Medical Screening Examination, I estimate there is LOW risk for ACUTE CORONARY SYNDROME, RESPIRATORY FAILURE, SEPSIS OR MENINGITIS, thus I consider the discharge disposition reasonable. I have reevaluated this patient multiple times and no significant life threatening changes are noted. The patient and I have discussed the diagnosis and risks, and we agree with discharging home with close follow-up. We also discussed returning to the Emergency Department immediately if new or worsening symptoms occur. We have discussed the symptoms which are most concerning (e.g., changing or worsening pain, trouble swallowing or breathing, neck stiffness, fever) that necessitate immediate return. - Vital Signs Vital signs: Temp Pulse Resp BP Pulse Ox 98.0 F 82 16 124/92 H 97 01/29/18 16:58 01/29/18 16:58 01/29/18 16:58 01/29/18 16:58 01/29/18 16:58 - Laboratory Result Diagrams: 01/29/18 15:50 01/29/18 15:50 Laboratory results interpreted by me: 01/29/18 01/29/18 15:50 15:50 Carbon Dioxide 33 H Glucose 144 H Hemoglobin A1c % 7.2 H Calcium 10.3 H Discharge - Discharge Clinical Impression: URI (upper respiratory infection) Qualifiers: URI type: unspecified URI Qualified Code(s): J06.9 - Acute upper respiratory infection, unspecified Condition: Stable Disposition: HOME, SELF-CARE Additional Instructions: UPPER RESPIRATORY ILLNESS: You have a viral infection of the respiratory passages -- a "cold." This common infection causes nasal congestion, drainage, and often sore throat and cough. It is highly contagious. The disease usually lasts about 10 to 14 days. There is no "cure" for the viral infection -- it must run its course. If there is a complication, such as bacterial infection in the nose, sinuses, middle ear, or bronchial tubes, antibiotics may be required. The antibiotics won't affect the virus. Drink plenty of fluids. A humidifier may help. An expectorant medication or decongestant may make you more comfortable. Use acetaminophen or ibuprofen for fever or aches. See the doctor if fever persists over two days, if there is any significant worsening of your symptoms, or if you simply fail to improve as expected. You was seen today for body aches. You have an upper respiratory infection which can give you body aches. You also have peripheral neuropathy from your diabetes. Neuropathy Your symptoms are due to neuropathy. Neuropathy is nerve damage. There are many causes, including diabetes, immune disease, alcohol, blood vessel disease, and vitamin deficiency. The usual symptoms are pain and numbness. Neuropathy can occur anywhere, but it's most likely in the "longest" nerves. That's why the feet are most often affected. Sometimes the nerve damage can heal. But if the symptoms have lasted more than a few months, the damage is permanent. To avoid further damage, treat your underlying health problems carefully. If you have diabetes, keep the blood sugar as normal as possible. Avoid alcohol. Treat high blood pressure and high cholesterol. Treating chronic pain can be a problem. Obviously, you don't want to become addicted to pain medicine. Work closely with your doctor on pain management. Your options include antiinflammatory medicine, anti seizure medicine, antidepressants, and pain clinic management. Contact the doctor if there is a significant change. Given you a copy of your labs and you are to take these to your primary doctor discussed all the symptoms that you have had over the last couple months with your primary doctor. They can help you to figure out what are these chronic symptoms. Your labs do look pretty good except for your A1c is elevated at 7.2. USE OF ACETAMINOPHEN (Tylenol): Acetaminophen may be taken for pain relief or fever control. It's much safer than aspirin, offering a wider range of "safe" dosages. It is safe during . Some brand names are Tylenol, Panadol, Datril, Anacin 3, Tempra, and Liquiprin. Acetaminophen can be repeated every four hours. The following are maximum recommended dosages: >89 pounds or adults 650 mg to 900 mg Acetaminophen can be repeated every four hours. Maximum dose not to exceed 4000 mg a day. SMOKING: If you smoke, you should stop smoking. The tar and chemicals in cigarette smoke are harmful. Smoking has been shown to cause: emphysema chronic bronchitis lung cancer mouth and throat cancer stomach and pancreas cancer premature aging defects In addition, smoking increases ear and lung infections in children of smokers. FOLLOW-UP CARE: If you have been referred to a physician for follow-up care, call the physician s office for an appointment as you were instructed or within the next two days. If you experience worsening or a significant change in your symptoms, notify the physician immediately or return to the Emergency Department at any time for re-evaluation. Forms: Elevated Blood Pressure, Smoking Cessation Education
[2018-01-29 16:10] LABS: ABSOLUTE BASOPHILS # (AUTO) 0.1 10^3/uL (0.0-0.2); ABSOLUTE EOSINOPHILS # (AUTO) 0.4 10^3/uL (0.0-0.6); ABSOLUTE LYMPHOCYTES (AUTO) 2.3 10^3/uL (0.5-4.7); ABSOLUTE MONOCYTES (AUTO) 0.8 10^3/uL (0.1-1.4); ABSOLUTE NEUT (AUTO) 6.9 10^3/uL (1.7-8.2); BASOPHILS % (AUTO) 1.1 % (0-2); EOSINOPHILS % (AUTO) 3.5 % (0-6); HEMATOCRIT 43.4 % (37.9-51.0); HEMOGLOBIN 14.8 g/dL (13.5-17.0); LYMPHOCYTES % (AUTO) 21.9 % (13-45); MEAN CORPUSCULAR HEMOGLOBIN 30.8 pg (27.0-33.4); MEAN CORPUSCULAR HGB CONC 34.1 g/dL (32.0-36.0); MEAN CORPUSCULAR VOLUME 90 fl (80-97); PLATELET COUNT 316 10^3/uL (150-450); RED BLOOD COUNT 4.81 10^6/uL (4.35-5.55); RED CELL DISTRIBUTION WIDTH 13.6 % (11.5-14.0); SEGMENTED NEUTROPHILS % (AUTO) 65.5 % (42-78); TOTAL CELLS COUNTED % (AUTO) 100 %; WHITE BLOOD COUNT 10.5 10^3/uL (4.0-10.5)
[2018-01-29 16:12] LABS: APPEARANCE,URINE CLEAR; BILIRUBIN,URINE NEGATIVE (NEGATIVE); COLOR,URINE YELLOW; GLUCOSE, URINE NEGATIVE (NEGATIVE); KETONES,URINE NEGATIVE (NEGATIVE); LEUKOCYTE ESTERASE,URINE NEGATIVE (NEGATIVE); NITRITE,URINE NEGATIVE (NEGATIVE); PROTEIN,URINE NEGATIVE (NEGATIVE); UROBILINOGEN,URINE NEGATIVE mg/dL (<2.0)
[2018-01-29 16:35] LABS: ALANINE AMINOTRANSFERASE 30 U/L (21-72); ALBUMIN 4.6 g/dL (3.5-5.0); ALKALINE PHOSPHATASE 76 U/L (38-126); ANION GAP 11 (5-19); ASPARTATE AMINO TRANSFERASE 23 U/L (17-59); BILIRUBIN,DIRECT 0.1 mg/dL (0.0-0.4); BILIRUBIN,TOTAL 0.3 mg/dL (0.2-1.3); BLOOD UREA NITROGEN 13 mg/dL (7-20); CALCIUM 10.3 mg/dL (8.4-10.2); CARBON DIOXIDE 33 mmol/L (22-30); CHLORIDE 99 mmol/L (98-107); GLUCOSE 144 mg/dL (75-110); POTASSIUM 4.5 mmol/L (3.6-5.0); SODIUM 142.7 mmol/L (137-145); TOTAL PROTEIN 7.7 g/dL (6.3-8.2)
[2018-01-29 17:06] VITALS: BP 124/92
== END 2018-01-29 17:09 | disposition home or self-care (01) ==
LOC: ER 12:23
DX: J06.9 Acute upper respiratory infection, unspecified (principal); R61 Generalized hyperhidrosis; M79.641 Pain in right hand; M79.642 Pain in left hand; M79.671 Pain in right foot; M79.672 Pain in left foot; R20.0 Anesthesia of skin; F17.210 Nicotine dependence, cigarettes, uncomplicated; E11.9 Type 2 diabetes mellitus without complications; I10 Essential (primary) hypertension
CPT/HCPCS: 36415; 80053; 81001; 83036; 85025; 99283